=== PATIENT | male | born 1985 | race Caucasian/White ===

== ENCOUNTER 2017-08-14 11:51 | Emergency (ER) | payer OTHER, SELFPAY ==
[2017-08-14 11:52] VITALS: BP 163/85; PULSE 64; RESP 18; TEMP 36.6; O2SAT 97; BMI 24.4
--- NOTE | 2017-08-14 12:05 | RAD_ITS ---
STUDY: X-RAY - RIGHT CALCANEUS REASON FOR EXAM: Male, 32 years old. Pain following injury. TECHNIQUE: 3 view(s) of the calcaneus were obtained. COMPARISON: None. FINDINGS: Normal visualized calcaneus. RAD/Calcaneus min 2 Views IMPRESSION: Normal x-ray examination of the calcaneus. Electronically Signed: Kennedy Giron MD at 12:57 EDT Tel [phone], Service support ,
--- NOTE | 2017-08-14 12:05 | RAD_ITS ---
STUDY: X-RAY - LEFT ANKLE REASON FOR EXAM: Male, 32 years old. Medial side pain following a fall. TECHNIQUE: 3 view(s) of the ankle. COMPARISON: None. FINDINGS: Normal visualized distal tibia and fibula. Normal medial and lateral malleoli. Normal tibiotalar articulation and ankle mortise. Normal visualized talus and calcaneus. The visualized subtalar, talonavicular, calcaneocuboid and tarsal articulations are normal. Medial soft tissue swelling. RAD/Ankle min 3 Views IMPRESSION: Medial soft tissue swelling. Electronically Signed: Kennedy Giron MD at 12:57 EDT Tel [phone], Service support ,
--- NOTE | 2017-08-14 13:11 | ED.DCSUM_ITS ---
- ER Visit Summary Date of Service: 08/14/17 Chief Complaint: Right heel and left ankle pain History of Present Illness: The patient is a [address] Presley. He reports that approximately 5 days ago he attempted to jump down a flight of stairs. Reports that he injured his left ankle and has pain there that 6-7 out of 10 severity. It is a dull, aching pain that is worsened by walking and relieved by Excedrin. Reports that he has pain over his right heel that is 8 out of 10 severity. This pain is sharp. It is also worsened by walking. He denies any other injuries. Physical Examination: Vitals: Stable. Afebrile. Neck: No vertebral tenderness. Full ROM without difficulty. Cleared by NEXUS criteria. Back: No vertebral tenderness. General: A&O x 3. NAD. Cardiovascular exam: Regular rate and rhythm, no murmur, rub or gallop. Respiratory exam: Chest nontender. No crepitus. Clear to auscultation bilaterally. No wheezes or stridor. Abdominal exam: Soft, nontender, nondistended, normal bowel sounds. No pain in RUQ or LUQ specifically. No peritoneal signs. Extremity: Moderate pain with palpation of his right calcaneus. There is minimal soft tissue swelling. No contusion. He has mild tenderness palpation over the left medial malleolus. There is soft tissue swelling. No hematoma. He has no pain over the lateral malleoli, base of the fifth metatarsal, or proximal fibula bilaterally. He is neurovascular intact distal to these injuries. Test Results: Left ankle x-ray shows soft tissue swelling and no fracture. Right calcaneus x-ray shows no acute disease. Emergency Department Course and Treatment: Patient refused pain medications. He is resting comfortably. Treatment Plan: Patient will be discharged with [place] and instructed to follow- up with Dr. Villalba in 1 week if not improving. Disposition: To home in improved and stable condition. Impression: Right heel pain. 2. Left ankle sprain. This note was generated with [employer] software. It may contain incorrect words, spelling, and punctuation that were not noted in review of the chart prior to signing ED Disposition - Plan for ED Patient: Disposition: Home or Assisted Living Chief Complaint: Lower Extremity Injury Instructions: ED Sprain Ankle W X Ray Prescriptions: Hydrocodone Bitart/Apap 5-325 [[place] 5/325] 1 - 2 tablet PO Q4H PRN PRN 3 Days # 12 tablet PRN Reason: Pain Naproxen [Naprosyn] 500 mg PO BID PRN #20 tablet Referrals: Patrice Villalba DPM [STAFF PHYSICIAN] - 1 Week if not improving
[2017-08-14 13:25] VITALS: BP 124/70; PULSE 64; RESP 18; O2SAT 98
== END 2017-08-14 13:26 | disposition home or self-care (01) ==
PROVIDERS: Emergency Provider Emergency Medicine
DX: S93.401A Sprain of unspecified ligament of right ankle, initial encounter (principal); M79.671 Pain in right foot; X58.XXXA Exposure to other specified factors, initial encounter; Y93.39 Activity, other involving climbing, rappelling and jumping off; Y92.89 Other specified places as the place of occurrence of the external cause; Y99.8 Other external cause status
CPT/HCPCS: 73610; 73650; 99282